=== PATIENT | male | born 1985 | race Caucasian/White ===

== ENCOUNTER 2018-09-14 18:12 | Inpatient (IN) ==
--- NOTE | 2018-09-14 18:21 | Emergency Department Note ---
Disposition Clinical Impression: Anxiety, Suicidal ideation, Methamphetamine abuse Disposition: Admitted As Inpatient Condition: Good Time of Disposition: 18:22 General Adult HPI - General Stated complaint: 1A Time Seen by Provider: 09/14/18 18:14 Source: patient Mode of arrival: wheelchair Limitations: no limitations Nursing Notes Reviewed: Yes Vital Signs Reviewed: Yes - History of Present Illness HPI Narrative: 33 year old male presents to the eD after being discharged from inpatient under special circumstances. He was admitted to medicine for medical clearance from opiate hallucinations and SI and was then evaluated by 1A and acceptd to the [facility] floors. However when they went looking for the pink slip it was not able to be found and there is consideration that it was otherwise destroyed. Nikhil is still having opiate hallucinations and is still SI. I have been requested to re-evaluate nikhil inthe ED as he was circumstantially discharged from inpatient to be re-admitted through the ED. [place] slipped has otherwise been filled out and nikhil will be transported to 1A. Anxious at bedside and is refusing a nicotine patch and wants to go outside and smoke. - Related Data Home Medications Medication Instructions Recorded Confirmed Methadone Oral Concentrate 120 mg PO DAILY 09/14/18 09/14/18 [Methadone] Allergies Allergy/AdvReac Type Severity Reaction Status Date / Time ibuprofen Allergy Nausea Verified 01/02/17 14:19 naproxen Allergy Nausea Verified 01/02/17 14:19 ondansetron [From Zofran] Allergy Hives Verified 12/26/17 12:49 Constitutional: Denies: fever, chills, weakness, weight change Eyes: Denies: eye pain, eye discharge, vision change ENT ED: Denies: ear pain, throat pain, dental pain, hearing loss, epistaxis, congestion, dysphagia Cardiovascular: Denies: chest pain, palpitations, dyspnea on exertion, edema, syncope Respiratory: Denies: cough, dyspnea, wheezes, hemoptysis, stridor Gastrointestinal: Denies: abdominal pain, nausea, vomiting, diarrhea, constipation, hematemesis, melena, hematochezia Genitourinary: Denies: urgency, dysuria, frequency, hematuria Musculoskeletal: Denies: back pain, neck pain, arthralgia, myalgia Integumentary: Denies: rash, abrasion, lesions Neurological: Denies: headache, weakness, numbness, paresthesias, confusion, abnormal gait, vertigo Psychiatric: Reports: suicidal thoughts, auditory hallucinations. Denies: anxiety, depression, homicidal thoughts, visual hallucinations Endocrine: Denies: fatigue Hematological/Lymphatic: Denies: easy bleeding, easy bruising Allergic/Immunologic: Denies: facial swelling, urticaria Past Medical History - Past Medical History Medical history: Reports: no medical history Surgical history: Reports: no surgical history Psychiatric history: Reports: depression - Social History Smoking Status: Current every day smoker Smokeless Tobacco Status: No Alcohol use: Reports: recent (Patient states he drinks one beer daily) Drug use: Reports: marijuana, methamphetamine, prescription drug abuse Physical Exam - General Limitations: no limitations General appearance: alert, in no apparent distress - Head Head exam: atraumatic, normocephalic, normal inspection - Eye Eye exam: Present: normal appearance, PERRL, EOMI - Expanded Eye Exam Pupils: Bilateral: reactive - ENT ENT exam: normal exam, normal oropharynx, mucous membranes moist - Expanded ENT Exam External ear exam: Present: normal external inspection Mouth exam: Present: normal external inspection Teeth exam: Present: normal inspection Throat exam: Present: normal inspection - Neck Neck exam: Present: normal inspection, full ROM, trachea midline - Chest Chest inspection: Present: normal inspection, symmetric chest wall rise - Respiratory Respiratory exam: Present: normal lung sounds bilaterally - Cardiovascular Cardiovascular exam: Present: regular rate, normal rhythm, normal heart sounds - Abdominal Exam Abdominal exam: Present: soft, Non-Tender. Absent: tenderness, distention, guarding, rebound, rigidity - Extremities Exam Extremities exam: Present: normal inspection, full ROM. Absent: tenderness, pedal edema - Expanded Upper Extremity Exam Shoulder exam: Present: normal inspection, full ROM Arm exam: Present: normal inspection, full ROM Elbow exam: Present: normal inspection, full ROM Forearm/Wrist exam: Present: normal inspection, full ROM Hand exam: Present: normal inspection, full ROM Vascular exam: Normal: capillary refill, radial pulse - Expanded Lower Extremity Exam Hip/Pelvis exam: Present: normal inspection, full ROM Upper leg exam: Present: normal inspection, full ROM Knee exam: Present: normal inspection, full ROM Lower leg exam: Present: normal inspection, full ROM Ankle exam: Present: normal inspection, full ROM Foot/toe exam: Present: normal inspection, full ROM Neurovascular/Tendon exam: Absent: motor deficit, sensory deficit, tendon deficit - Back Exam Back exam: Present: normal inspection, full ROM. Absent: tenderness - Neurological Exam Neurological exam: Present: alert, oriented X3 - Expanded Neurological Exam Patient oriented to: Present: person, place, time Coma Scale Eye Opening: Spontaneous Coma Scale Motor Response: Obeys Commands Coma Scale Verbal Response: Oriented Coma Scale Total: 15 - Psychiatric Psychiatric exam: Present: agitated, anxious, suicidal ideation - Skin Skin exam: Present: warm, dry, intact, normal color Course Course Narrative: pink slip has been filled out and he has been accepted to 1A.
[2018-09-14] MEDS ORDERED: *HR* LORazepam 1 MG TABLET PO PRN (20:47)
[2018-09-14] MEDS ORDERED: hydrOXYzine pamoate 25 MG CAPSULE PO PRN (23:12)
[2018-09-14] MEDS ORDERED: Mag Hydrox/Al Hydrox/Simeth 30 ML UDC PO PRN (23:12)
[2018-09-14] MEDS ORDERED: traZODone 50 MG TABLET PO PRN (23:12)
[2018-09-14] MEDS ORDERED: MOM Conc 10 ML UD.LIQ PO PRN (23:12)
[2018-09-14] MEDS ORDERED: Haloperidol Lactate 5 MG/ML VIAL IM PRN (23:12)
[2018-09-14] MEDS ORDERED: Acetaminophen 325 MG TABLET PO PRN (23:12)
[2018-09-15] MEDS ORDERED: Nicotine 21 MG PATCH.TD24 TD SCH (09:00)
--- NOTE | 2018-09-15 10:22 | Psychiatry History & Physical ---
Date of Encounter: 09/15/18 Time of Encounter: 10:10 History of Present Illness Patient Stated Chief Complaint: suicidal ideation Medicare Admission Attestation: For traditional Medicare patients the provided hospital inpatient services are reasonable and necessary and in the case of services not specified as inpatient-only under 42 CFR 419.22 (n), that they are appropriately provided as inpatient services in accordance 42 CFR 412.3. For Critical Access Hospital the patient may reasonably be expected to be discharged or transferred to a hospital within 96 hours after admission to the Critical Access Hospital. Admitted From: Home Plans for Post Hospital Care: Home History of Present Illness: Mr. Enamorado is a 33 year old male who is a transfer from the medical floor. Please see psychiatry consult note for more information. Client has no mental health history. He presented to the ER secondary to confusion/hallucinations and was admitted medically. A pink slip was written by the ER. While on the medical floor the pink slip was discontinued by the primary team as client consistently denied SI/HI. On eval from psychiatry client was felt to have a psychotic depression versus substance induced psychosis (meth)/withdrawal from benzodiazepines. Client declined a voluntary admission and could no longer be pink slipped. When the medical floor went to discharge him client again endorsed suicidal thoughts so his family was contacted, client was discharged, and his mother immediately walked him to the emergency room, and client was admitted to 1A on a new pink slip. On eval today client is once again denying SI. Cannot explain why he became suicidal again at the time of discharge yesterday. Client is denying any further AH but he appears to be responding at times. Definitely having some paranoia. Client is extremely thin. Demonstrated some fear of his meal tray when seen on the medical floor yesterday. States he has had a little to eat since being admitted to 1A but appears reluctant to eat. Client states he has suffered from depression/anxiety for a long time. May be having a psychotic depression but presentation seems more likely due to recent meth use. Client denies having any physical symptoms of benzo withdrawal. However, he was buying Valium and Xanax off the street so this needs to be in differential. Client has been going to a Methadone Clinic due to a past opiate addiction but states he wants off of everything and does not plan to follow through with the clinic anymore. Client states depression runs in his family but is unaware of anyone being actively treated for mood symptoms. Client lives at home with his parents. Does not want his parents contacted today but it would be helpful to staff to be able to talk to someone. Hopefully, after being on meds for a couple of days client will clear up and allow contact with family. Client is reluctant to take medications but Zoloft and Zyprexa reviewed and will be ordered. Past Med Surg Social Fam HX - Past Medical History Medical history: no medical history - Past Psychiatric History Psychiatric history: Reports: no psych history Family psychiatric history: Yes Family Psychiatric History Details: depression and anxiety Family History of Suicide: None - Past Surgical History Surgical History: no surgical history - Social History Smoking Status: Current every day smoker Smokeless Tobacco Status: No Alcohol use: recent Drug use: opiates, marijuana, methamphetamine, prescription drug abuse - Family History Mother Family Member Ethnicity: Non- Living Status: Still Living Hx Family Respiratory Disorders: Yes (Lung problems) Hx Family GI Disorders: Yes (Stomach issues) Father Family Member Ethnicity: Non- Living Status: Still Living Hx Family Respiratory Disorders: Yes Hx Family GI Disorders: Yes (Stomach issues) Sister Family Member Ethnicity: Non- Living Status: Still Living Medications & Allergies Methadone Oral Concentrate [Methadone] 120 mg PO DAILY 09/14/18 [History] Allergy/AdvReac Type Severity Reaction Status Date / Time ibuprofen Allergy Nausea Verified 01/02/17 14:19 naproxen Allergy Nausea Verified 01/02/17 14:19 ondansetron [From Zofran] Allergy Hives Verified 12/26/17 12:49 Review of Systems Constitutional: Denies: fever, chills, weakness, weight change Eyes: Denies: eye pain, vision change Ears, Nose, Throat: Denies: ear pain, throat pain, dental pain, hearing loss, congestion Cardiovascular: Denies: chest pain, palpitations, dyspnea on exertion Respiratory: Denies: cough, dyspnea, wheezes Gastrointestinal: Denies: abdominal pain, nausea, vomiting, diarrhea, constipation Genitourinary male: Denies: urgency, dysuria, frequency, genital lesions Musculoskeletal: Denies: joint swelling, joint pain Integumentary: Denies: rash, lesions, pruritus Neurological: Denies: headache, weakness, numbness, memory loss Endocrine: Denies: fatigue, heat or cold intolerance Hematologic/Lymphatic: Denies: easy bruising, lymphadenopathy Allergic/Immunologic: Denies: urticaria, itchy eyes Exam - HEENT Head exam IM: Present: atraumatic Eye exam IM: Present: EOMI, normal appearance, PERRL ENT exam IM: Present: normal exam - Neurological Neurological exam: Present: CN II-XII intact - Respiratory Respiratory exam IM: Present: CTAB - GI/Abdominal GI/Abdominal exam IM: Present: normal bowel sounds, soft. Absent: tenderness - Extremities Extremities exam IM: Present: full ROM - Skin Skin exam IM: Present: dry, warm - Constitutional Vitals: Temp Pulse Resp BP Pulse Ox 98.2 F 82 18 143/97 100 09/15/18 09:00 09/15/18 09:00 09/15/18 09:00 09/15/18 09:00 09/15/18 09:00 General appearance: thin - Musculoskeletal Gait: normal Station: shaky Strength & Tone: normal for patient - Psychiatric Patient Orientation: Yes Person, Yes Time, Yes Place Level of alertness: Alert Behavior: nervous Psychomotor activity: Normal Eye Contact: Minimal Contact Mood Description: Anxious Affect description: congruent with mood Speech Volume: Normal Speech pattern: normal rate, normal rhythm, normal tone, fluent, spontaneous Language & Vocabulary: consistent with education Thought Process: [place] Thought Content: No Suicidal ideation, No Homicidal ideation, No Overt delusions Perceptual Disturbances: Yes Reacting to internal stimuli Attention Span Ability: Capable of Focused Attention Memory Description: Grossly Intact Patient Reliability: Questionable Historian Fund of knowledge: Yes abstraction ability, Yes average, Yes aware of current events Intelligence Estimate: Average Judgment: Poor Insight: Minimal Assessment and Plan (1) Substance-induced psychotic disorder Current visit: Yes Status: Acute Plan: Admit inpatient for safety and stabilization, Close observation, Suicide Precautions per unit protocol, Encourage participation in unit milieu, Group Therapy, Monitor sleep, Monitor appetite Risks, benefits, side effects, alternatives discussed w/pt: Yes Patient agreeable to treatment: Yes Plans for Post Hospital Care: Home Estimated Length of Stay (Days): 4
[2018-09-15] MEDS ORDERED: OLANZapine 5 MG TAB.RAPDIS PO SCH (21:00)
[2018-09-16] MEDS: Nicotine 2 MG GUM BC PRN ×2 (09:10→11:05)
[2018-09-16 09:31] VITALS: BP 133/95
--- NOTE | 2018-09-16 11:29 | Discharge Summary ---
Date of Encounter: 09/16/18 Time of Encounter: 11:15 Diagnosis - Discharge Diagnosis (1) Substance-induced psychotic disorder Status: Acute Medications - Discharge Medications Prescriptions: Sertraline [Zoloft] 50 mg PO DAILY #30 tablet Methadone Oral Concentrate [Methadone] 120 mg PO DAILY 09/14/18 [History] Sertraline [Zoloft] 50 mg PO DAILY #30 tablet 09/16/18 [Rx] Allergy/AdvReac Type Severity Reaction Status Date / Time ibuprofen Allergy Nausea Verified 01/02/17 14:19 naproxen Allergy Nausea Verified 01/02/17 14:19 ondansetron [From Zofran] Allergy Hives Verified 12/26/17 12:49 Provider Date of admission: 09/14/18 18:29 Primary care physician: PCP NONE Discharging clinician: Meeta Berger Psychiatry Exam - Constitutional Vitals: Temp Pulse Resp BP Pulse Ox 97.7 F 95 16 133/95 97 09/16/18 09:31 09/16/18 09:31 09/16/18 09:31 09/16/18 09:31 09/16/18 09:31 General appearance: thin - Musculoskeletal Gait: normal Station: relaxed Strength & Tone: normal for patient - Psychiatric Patient Orientation: Yes Person, Yes Time, Yes Place Level of alertness: Alert Behavior: calm, cooperative Psychomotor activity: Abnormal movements Eye Contact: Maintains Eye Contact Mood Description: Depressed Affect description: congruent with mood, full range Speech Volume: Normal Speech pattern: normal rate, normal rhythm, normal tone, fluent, spontaneous Language & Vocabulary: consistent with education Thought Process: Linear, Goal Oriented Thought Content: No Suicidal ideation, No Homicidal ideation, No Overt delusions Perceptual Disturbances: No Auditory hallucinations, No Visual hallucinations Attention Span Ability: Capable of Focused Attention Memory Description: Grossly Intact Patient Reliability: Reliable Historian Fund of knowledge: Yes abstraction ability, Yes aware of current events Intelligence Estimate: Average Judgment: Limited Insight: Partial Hospital Course Hospital course: Mr. Enamorado is a 33 year old male who was admitted with substance induced psychosis. He was initially admitted to the medical floor with new onset paranoia and AH. A pink slip was written and then withdrawn due to no SI/HI. However, client endorsed SI when the medical floor tried to discharge him so his mother walked him to the ER and he was admitted to on a new pink slip. Yesterday client was still experiencing some psychosis. He denied AH but he was observed to be responding to IS. During the afternoon he became agitated and demanded to leave. At one point he picked up a chair and swung it. He was given emergency medications at that point. He calmed down yesterday evening and apologized to staff. Today he seems to be thinking clearly. He is denying any further AH or paranoia. He is denying SI, intent, or plan and has no history of suicide attempts. He is having some dyskinetic movements of his tongue. This is new today. Dyskinesia may be due to meth withdrawal or secondary to the antipsychotics he received in the hospital. He is not having any other EPS reactions like muscle stiffness, difficulty swallowing/breathing, or dyskinesias of extremities. However, since he is thinking clearly will stop the antipsychotic. This play writer spoke with his mother who verified client has no history of psychosis and paranoia/hallucinations started after he last used methamphetamines. Doubt he needs an antipsychotic provided he stays off the meth. Client was also started on Zoloft for depression and client plans to continue this medication and follow up as an outpatient. Client is scheduled to be seen as an outpatient tomorrow as he was set up with outpatient appointments while on the medical floor. Client's mother visited on the unit yesterday and feels client is doing much better. She feels comfortable with him coming home and would like to pick him up today so client can make his appointment tomorrow. Client is future oriented and feels safe going home. Both client and mother stated they would return to ER if tongue movements worsen or if client has any changes like difficulty breathing or swallowing. Total time spent with client greater than 30 minutes. - Time Spent with Patient Total time spent providing and/or coordinating discharge services: Assessment and Plan - Patient/Caregiver Discharge Instructions Activity: resume usual activities as tolerated Diet: regular diet - Follow up Plan Follow up with: NONE,PCP [Primary Care Provider] - Functional capacity at discharge: independent ambulation Overall status at discharge: Stable Disposition: Home, Self-Care Quality - Multiple Antipsychotics Patient discharged on 2 or more antipsychotic medications: No Procedures - Procedures Procedures: Medication Management, Crisis Stabilization, Supportive Therapy, Group Therapy
== END 2018-09-16 12:00 | disposition home or self-care (01) | DRG 776 ==
LOC: EMEROOARM 18:12 → 1ANU 18:29
PROVIDERS: ADMIT Psychiatry & Neurology Psychiatry; ATTEND Psychiatry & Neurology Psychiatry